=== PATIENT | female | born 1985 | race Two or more races ===

== ENCOUNTER 2021-07-09 22:52 | Emergency (ER) | payer OTHER ==
[~2021-07-09] VITALS: Ht 154.9 cm; Wt 68.0 kg
[2021-07-09] MEDS ORDERED: LORazepam 0.5 MG TAB PO ONE (23:45)
[2021-07-10] MEDS ORDERED: ONDANSETRON ODT 4 MG TAB PO ONE (02:30)
[2021-07-10 03:30] VITALS: BP 116/63
== END 2021-07-10 04:01 | disposition home or self-care (01) ==
LOC: ER 22:54
DX: F41.9 Anxiety disorder, unspecified (principal); F41.0 Panic disorder [episodic paroxysmal anxiety]; R11.2 Nausea with vomiting, unspecified; G43.909 Migraine, unspecified, not intractable, without status migrainosus; F43.0 Acute stress reaction
CPT/HCPCS: 99283; Q0162